=== PATIENT | female | born 1950 | race Caucasian/White ===

== ENCOUNTER → 2016-10-11 08:55 | Outpatient (CLI) | payer MEDICARE, OTHER ==
[2016-05-30 07:41] VITALS: BMI 43.7
[~2016-10-11 08:55] MED LIST: ADVIL COLD & SI1 TAB PO; ADVIL100 M1 PO; HYDROCODONE-APA1 TAB PO; NORCO 10/325 TA1 TA1 PO
== END | disposition home or self-care (01) ==
LOC: D.MRI 10-09 14:00
DX: M25.561 Pain in right knee (principal)

== ENCOUNTER 2016-11-14 05:45 | Day surgery (SDC) | payer MEDICARE, OTHER ==
[2016-11-13 11:39] LABS: HEMATOCRIT 42.8 % (36.0-48.0); HEMOGLOBIN 14.3 g/dL (12-16); MCH 31.1 pg (26.0-34.0); MCHC 33.4 g/dL (31.0-37.0); MEAN PLATELET VOLUME 10.3 fL (7.4-10.4); RBC 4.6 10x6/uL (4.00-5.40); RDW 12.1 % (11.5-14.5); WBC 6.6 10x3/uL (4.8-10.8)
[2016-11-13 11:45] LABS: ANION GAP 12.7 mmol/L (8-16); CARBON DIOXIDE 28.4 mmol/L (21.0-32.0); POTASSIUM - SERUM 4.1 mmol/L (3.5-5.1)
[~2016-11-14] VITALS: Ht 162.6 cm; Wt 116.6 kg
[2016-11-14 07:07] VITALS: BP 168/78; Ht 162.6 cm; Wt 116.6 kg
[2016-11-14] MEDS ORDERED: HYDROCODONE-APA1 TAB PO (08:57)
--- NOTE | 2016-11-14 10:36 | NUR ---
IV DC WITH CATHER TIP INTACT
--- NOTE | 2016-11-18 18:57 | OP ---
PATIENT NAME: LAYNE KAHN MEDICAL RECORD: [id number] :54 LOCATION:D.OPS ADMISSION DATE: SURGEON: OMAR POE MD DATE OF OPERATION: 11/14/2016 PREOPERATIVE DIAGNOSIS: Painful right knee with mild to moderate arthritis and synovitis. POSTOPERATIVE DIAGNOSIS: Painful right knee with mild to moderate arthritis and synovitis. PROCEDURES: 1. Right knee arthroscopy, partial synovectomy and generalized medial compartment debridement. 2. ACP injection. SURGEON: Omar Poe MD. ANESTHESIA: General. INTRAOPERATIVE COMPLICATIONS: None. SUMMARY OF PATHOLOGIC FINDINGS: The patient had intense synovitis. 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 Chondroplasty of the medial femoral condyle was performed, followed by 5 cc injection of autologous conditioned plasma. OPERATIVE SUMMARY IN DETAIL: After obtaining the appropriate preoperative orthopedic surgery consent as well as anesthetic consultation, evaluation and clearance, the patient was brought to the operating room and placed on the operating table in supine position. After general laryngeal mask was administered, tourniquet was placed about the proximal aspect of the right lower extremity. Right lower extremity was prepped and draped in routine sterile fashion. The leg was elevated and exsanguinated, tourniquet inflated to 350 mmHg. Routine inferolateral portal was established followed by superomedial portal and inferomedial portal. Diagnostic arthroscopy revealed the above findings. A resector was utilized to perform gentle chondroplasty and a generalized synovectomy in about the medial side as well as the subpopliteal recess. Having completed this, the arthroscopy portals were closed in routine interrupted fashion using 4-0 Prolene. The knee was then inflated with 5 cc of good autologous conditioned plasma (ACP) -- PRP subset. Sterile dressings were applied. Tourniquet was deflated. The patient was awakened and taken to the recovery room in stable condition. All final needle and sponge counts were correct. TRANSINT:[id number] Voice Confirmation ID: [id number] DOCUMENT ID: [id number] OPERATIVE REPORT [id number] ALEXI LAYNE PAIZ MD, OMAR ALEXANDRA at 2345 CC: [id number] DICTATION DATE: 11/14/16 0900 CLIENT EXECUTIVE: 11/14/16 1444 DEP SDC 11/14/16 [facility] [address] [place] [address]
== END 2016-11-14 10:53 | disposition home or self-care (01) ==
LOC: D.OPS 05:45 → D.PAN 08:00 → D.OPS 10:53
PROVIDERS: Anesthesiology
DX: M13.861 Other specified arthritis, right knee (principal); M65.861 Other synovitis and tenosynovitis, right lower leg; M94.261 Chondromalacia, right knee
CPT/HCPCS: 29875; 0232T